=== PATIENT | female | born 1990 | race Caucasian/White ===

== ENCOUNTER 2017-06-24 11:28 | Emergency (ER) | payer OTHER ==
[2017-06-24 11:51] VITALS: BMI 30.4
[2017-06-24 13:03] LABS: SQUAMOUS EPITHIAL 1 /hpf (0-5); URINE BACTERIA OCC (<OCC); URINE BILIRUBIN NEGATIVE (NEGATIVE); URINE BLOOD NEGATIVE (NEGATIVE); URINE CLARITY SLIGHTY-CLOUDY (Clear); URINE COLOR YELLOW (YELLOW); URINE GLUCOSE (UA) NEG (Normal); URINE LEUKOCYTE ESTERASE NEG Leu/uL (Negative); URINE NITRATE NEGATIVE (NEGATIVE); URINE PROTEIN NEGATIVE (NEGATIVE); URINE UROBILINOGEN 0.2-1.0 mg/dL (0.2-1.0)
[2017-06-24] MEDS ORDERED: Lactated Ringer's 1,000 ML IV SCH (13:15)
--- NOTE | 2017-06-24 14:47 | OBHP ---
Datetime: 06/24/2017 12:43 IP Adm Impression: Term, intrauterine Admit Comment, IP Provider: 26 y/o female (ADOLFO 07/11) at 38wks gestation presents with intermitt ent low back and pelvic pain starting last night. Pt describes pain as mesntrual cramps, 4/10 in inte nsity, occuring [id number]. She also reports 2 episodes of pink tinged mucuous discharge. Pt states she has been having frequency and urgency of urination. Denied dysuria, fever, chills, flank pain, or vaginal pruritis. Denies vaginal bleeding, LOF. Reports movement. Pt also reports that she had a yeast infection 2 weeks ago, treated with a vaginal cream. Now resolved. PNC: Seen at [facility]. GBS+. Last visit 06/19, Last U/S 06/16 WNL. 3rd trimester labs revi ewed. Next OB visit 06/19 OBHx: denies PMHX: denies PSurgHx: denies Medications: PNV Allergies: NKDA PE General: NAD Cardio: RRR, No murmurs Resp: CTABL, no wheezing Abdomen: Gravid, NT FHR: 150s', reactive, questionnable late decel x1 [place]: low amplitude, irregular CTX Assessment: IUP at 38 wks Plan: IV hydration, 1 bolus LR, Continuous monitoring. Observation The patient was seen with resident I agree with the notes. Vaginal exam 1 cm 75% effaced -2 Early labor, patient discharged home with labor precautions. EGA AdmitDate IP: 37.4 Vital Signs Provider: Reviewed; Within Normal Limits IP Chief Complaint: Uterine contractions
[2017-06-24 18:44] VITALS: BP 116/65; PULSE 85; RESP 18; TEMP 98.6; O2SAT 100
== END 2017-06-24 14:30 | disposition home or self-care (01) ==
LOC: H.EROB2 11:28 → H.EROB 12:02 → H.EROB2 14:30
DX: O26.893 Other specified pregnancy related conditions, third trimester (principal); R10.2 Pelvic and perineal pain; M54.5 Low back pain; Z3A.38 38 weeks gestation of pregnancy
CPT/HCPCS: 81003; 99283; J7120

== ENCOUNTER 2017-06-25 06:23 | Inpatient (IN) | payer OTHER ==
[2017-06-25 07:33] VITALS: BMI 31.4
[2017-06-25] MEDS ORDERED: AMPicillin 2 GM in Sodium Chloride 0.9% 100 ML IVPB STA (07:43)
[2017-06-25] MEDS: Lactated Ringer's 1,000 ML IV SCH ×3 (07:45→10:00)
[2017-06-25] MEDS ORDERED: AMPicillin 1 GM in Sodium Chloride 0.9% 100 ML IVPB SCH (07:45)
[2017-06-25] MEDS ORDERED: Oxytocin 30 UNITS in Sodium Chloride 0.9% 500 ML IV SCH (08:00)
[2017-06-25 08:04] LABS: BASO # 0.1 K/uL (0.0-0.2); BASO % 1.2 % (0.0-2.0); EOS # 0.1 K/uL (0.0-0.7); EOS % 0.7 % (0.0-4.0); HEMOGLOBIN 11.8 g/dL (12.0-16.0); LYMPH # 2.1 K/uL (1.0-4.3); LYMPH % 21.3 % (20.0-40.0); MEAN CORPUSCULAR HEMOGLOBIN 27.2 pg (27.0-31.0); MEAN CORPUSCULAR HGB CONC 32.8 g/dL (33.0-37.0); MEAN PLATELET VOLUME 10.1 fl (7.2-11.7); MONO # 0.6 K/uL (0.0-0.8); MONO % 5.9 % (0.0-10.0); NEUT # 6.9 K/uL (1.8-7.0); NEUT % 70.9 % (50.0-75.0); NRBC % 0.1 % (0.0-0.0); RBC 4.33 Mil/uL (3.80-5.20); WHITE BLOOD COUNT 9.7 K/uL (4.8-10.8)
[2017-06-25] MEDS ORDERED: Oxytocin 30 UNITS in Sodium Chloride 0.9% 500 ML IV ONE (10:02)
--- NOTE | 2017-06-25 10:31 | OBPN ---
Datetime: 06/25/2017 07:49 IP Progress Impression: Reassuring heart rate IP Progress Plan: Augmentation (Annotations: Data stored by CPN on behalf of user) FHR - Baseline A Provider: 130s IP Progress Note Comment: Patient without complaints. Plan to start Pitocin augmentation. Maternal well-being and well-being reassuring at this time. Vital Signs Provider: Reviewed; Within Normal Limits NICHD Accel Fetus A IP Provider: [id number] FHR Category Provider Fetus A: Category I NICHD Variability Prov Fetus A: Moderate 6-25bpm NICHD Decel Fetus A IP Provider: None
[2017-06-25] MEDS: AMPicillin 1 GM in Sodium Chloride 0.9% 100 ML IVPB SCH ×2 (13:00→17:10)
[2017-06-25] MEDS ORDERED: Fentanyl/Bupivacaine HCl 250 ML EPI ONE ×2 (14:31→14:41)
[2017-06-25] MEDS ORDERED: Lidocaine 1% Inj (20ml) ONE (15:51)
[2017-06-25] MEDS ORDERED: Oxycodone/Acetaminophen 5/325 mg Tab PO PRN ×2 (19:21)
[2017-06-25] MEDS ORDERED: Benzocaine/Menthol SPRAY TOP PRN (19:21)
[2017-06-26] MEDS: Lactated Ringer's 1,000 ML IV SCH (02:57)
[2017-06-26 07:42] LABS: HEMOGLOBIN 9.7 g/dL (12.0-16.0); MEAN CELL VOLUME 83.6 fl (81.0-99.0); MEAN CORPUSCULAR HEMOGLOBIN 27.1 pg (27.0-31.0); MEAN CORPUSCULAR HGB CONC 32.4 g/dL (33.0-37.0); RBC 3.58 Mil/uL (3.80-5.20); RED CELL DISTRIBUTION WIDTH 13.9 % (11.5-14.5); WHITE BLOOD COUNT 11.2 K/uL (4.8-10.8)
--- NOTE | 2017-06-26 08:42 | OBDS ---
DELIVERY PERSONNEL Delivery Doctor: Obinna Christie MD Executive Housekeeper: Ashly Morejon RN MATERNAL INFORMATION Delivery Anesthesia: Epidural Medications in Delivery: pitocin Estimated Blood Loss (ml): 300 ml Placenta Cultured: No Maternal Complications: None Provider Comments: Normal spontaneous vaginal delivery. Patient delivered viable male with Ap gars of 9 and 9 at one and 5 minutes respectively. Loose nuchal cord 1 reduced. Infant delivered v ia compounds/hand presentation. Placenta delivered spontaneously. Lacerations repaired, as above. [place] dariusz firm and appropriately hemostatic following delivery. No complications. Estimated blood loss 300 mL. LABOR SUMMARY EDC: 07/11/2017 00:00 No. Babies in Womb: 1 Attempted: No Labor Anesthesia: None LABOR INFORMATION Reason for Induction: Not Applicable Onset of Labor: 06/25/2017 03:00 Complete Dilatation: 06/25/2017 16:25 Oxytocin: Augmentation Group B Beta Strep: Positive Antibiotics # of Doses: 3 Antibiotics Time of Last Dose: 1700 Steroids Given: None Reason Steroids Not Administered: Not Applicable MEMBRANES Membranes Rupture Method: Spontaneous Rupture of Membranes: 06/25/2017 03:00 Length of Rupture (hrs): 15.42 Amniotic Fluid Color: Clear Amniotic Fluid Amount: Small Amniotic Fluid Odor: Normal STAGES OF LABOR Stage 1 hrs: 13 Stage 1 min: 25 Stage 2 hrs: 2 Stage 2 min: 0 Stage 3 hrs: 0 Stage 3 min: 11 Total Time in Labor hrs: 15 Total Time in Labor min: 36 VAGINAL DELIVERY Laceration Extension: First Degree Laceration Type: Perineal Other Laceration: right labial Laceration Repair: Yes Laceration Repair Note: First-degree right labial laceration and first-degree midline perineal lacer ation. This infiltrated with 1% lidocaine. Both lacerations were repaired with 2. 0 repeat without co mplication. Areas hemostatic after repair. Patient tolerated repair well. Initial Vag Sponge Count: 10 Final Vag Sponge Count: 10 Initial Vag Sharps Count: 4 Final Vag Sharps Count: 4 Sponge Count Correct: Yes Sharps Count Correct: Yes Count Comment: 5 laps. correct count/acknowledged. BABY A INFORMATION Delivery Date/Time: 06/25/2017 18:25 Method of Delivery: Vaginal Born in Route : No : N/A Forceps: N/A Vacuum Extraction: N/A Shoulder Dystocia : No SHOULDER DYSTOCIA BABY A Infant Delivery Date/Time: 06/25/2017 18:25 PRESENTATION/POSITION BABY A Presentation: Cephalic Cephalic Presentation: Vertex Breech Presentation: N/A PLACENTA INFORMATION BABY A Placenta Delivery Time : 06/25/2017 18:36 Placenta Method of Delivery: Spontaneous Placenta Status: Delivered SCORES BABY A Heart Rate 1 min: >100 bpm Resp Effort 1 min: Good Cry Reflex Irritability 1 min: Cough or Sneeze or Pulls Away Muscle Tone 1 min: Active Motion Color 1 min: Body [place], Extremities Blue Resuscitation Effort 1 min: Tactile Stimulation SCORE 1 MIN: 9 Heart Rate 5 min: >100 bpm Resp Effort 5 min: Good Cry Reflex Irritability 5 min: Cough or Sneeze or Pulls Away Muscle Tone 5 min: Active Motion Color 5 min: Body [place], Extremities Blue Resuscitation Effort 5 min: Tactile Stimulation SCORE 5 MIN: 9 INFORMATION BABY A Gestational Age at Delivery: 37.5 Gestational Status: Term Outcome : Liveborn Condition : Stable Sex: Male IDENTIFICATION/MEDS BABY A ID Band Number: [id number] ID Band Location: Left Leg; Left Arm Vitamin K Given : Not Given Erythromycin Given: Not Given WEIGHT/LENGTH BABY A Birthweight (gms): 3315 Weight (lb): 7 Infant Weight (oz): 5 CORD INFORMATION BABY A No. Cord Vessels: 3 Nuchal Cord : Around Neck x1, Loose Cord Blood Taken: Yes Infant Suction: Mouth; Nose ASSESSMENT BABY A Complications: None Physical Findings at Delivery: Within Normal Limits Infant Respirations: Appears Normal Agricultural Science Professor/ALS Called : No Care By: sharon Transferred To: Remains with Mother
--- NOTE | 2017-06-27 09:35 | OBDCSUM ---
Datetime: 06/27/2017 07:14 Discharged to, Provider: Home Follow up at, Provider: Tobias Musa Disch Instr Activity: Normal activity; May be up to bathroom; May be up for meals; May Shower Disch Instr Diet: Regular Discharge Instructions, Provider: Routine instructions given Discharge Diagnosis, Provider: Term Delivered Follow up in weeks, Provider: 4-6 weeks Contraception discussed, Prov: Yes Disch Activity Restrictions: No exercising; No lifting; No sexual activity; Nothing in vagina - Inte rcourse, tampons, douche Discharge Comment, Provider: 26 yo , s/p NVD of viable male infant on 06/25/17 at 1825, w eight 3315g, APGARS: 9/9. Doing well on PPD 2. Discharge instructions: Encourage PNV 1 tab PO/day Ibuprofen 600 mg 1 tab Q6h PRN if moderate pain, Colace 100mg BID for constipation, Ferrous Sulfat e 325 mg once daily Ambulate with caution, nothing per vagina for 4-6 weeks, no heavy lifting, avoid stairs. If excess juliano bleeding, or fever without relief from tylenol, go to ED. Follow up with provider at [place] in 4-6 weeks. Follow up at wood type finisher or family medicine provider of choice within 1 week to establish care fo r . [facility]. Pt seen on rounds and agree with note. KEISHA Contraception after Delivery: Undecided
--- NOTE | 2017-06-27 09:35 | OBPPN ---
Datetime: 06/27/2017 07:11 PP Pain Prov: Within normal limits PP Nausea Prov: Denies PP Flatus Prov: Yes PP BM Prov: Yes PP Breasts Prov: Not Done PP Heart Prov: Normal PP Lungs Prov: Normal PP Abdomen/Uterus Prov: Normal PP Lochia Prov: Normal PP Vulva/Perineum Prov: Not Done PP CVA Tenderness Prov: Not Done PP Extremities Prov: Normal PP C/S Incision Prov: Not Applicable PP Progress Prov: Normal PP Impression Prov: Normal progression PP Plan Prov: Discharge PP Progress Note Prov: 26 yo , s/p NVD on 06/25/17, PPD 2. Pt was seen and examined at bedside this morning; no acute events overnight. Reports mild abdominal pain that is well controlled with med ication. She has ambulated around the room and to the bathroom and she has voided freely. Has passed gas and has had BM. Lochia less than menses in volume. Breast and bottle feeling . Tolerating diet without difficulty. Denies fever, chills, chest pain, shortness of breath, nausea, vomiting, carlos n in calves. Gen: no acute distress, alert CV: S1S2, RRR Resp: normal effort of respiration, clear to auscultation bilaterally Abdomen: BS+, appropriate tenderness to palpation. Uterus is firm and at the level of the umbilicu s. Ext: no edema, calves nontender A: 26 yo , s/p NVD on 06/25/17, PPD 2. Pt stable, pain well controlled. Doing well. P: Discharge today. [id number] [facility] Pt seen on rounds and agree with note. KEISHA
[2017-06-27 22:03] VITALS: BP 111/76; PULSE 89; RESP 19; TEMP 98.3; O2SAT 99
--- NOTE | 2017-06-29 11:20 | OBPPN ---
Datetime: 06/26/2017 06:26 PP Pain Prov: Within normal limits PP Nausea Prov: Denies PP Flatus Prov: Yes PP BM Prov: No PP Breasts Prov: Not Done PP Heart Prov: Normal PP Lungs Prov: Normal PP Abdomen/Uterus Prov: Normal PP Lochia Prov: Normal PP Vulva/Perineum Prov: Not Done PP CVA Tenderness Prov: Not Done PP Extremities Prov: Normal PP C/S Incision Prov: Not Applicable PP Progress Prov: Normal PP Impression Prov: Normal progression PP Progress Note Prov: 26 yo , s/p NVD on 06/25/17, PPD 1. Pt was seen and examined at bedside this morning; no acute events overnight. Reports mild abdominal pain that is well controlled with med ication. She has ambulated around the room and to the bathroom and she has voided freely. Has passed gas, has not had a BM yet. Lochia less than menses in volume. Breast and bottle feeling . Tole rating diet without difficulty. Denies fever, chills, chest pain, shortness of breath, nausea, vomiti ng, pain in calves. Gen: no acute distress, alert CV: S1S2, RRR Resp: normal effort of respiration, clear to auscultation bilaterally Abdomen: BS+, appropriate tenderness to palpation. Uterus is firm and at the level of the umbilicu s. Ext: no edema, calves nontender A: 26 yo , s/p NVD on 06/25/17, PPD 1. Pt stable, pain well controlled. Doing well. P: Continue current post- management. [id number] Pt was seen and discussed with Resident and I agree with the above. Vital Signs Provider PP: Reviewed; Within Normal Limits
== END 2017-06-27 17:55 | disposition home or self-care (01) | DRG 373 ==
LOC: H.EROB2 06:23 → H.L&D 07:04 → H.EROB2 07:38 → H.L&D 07:39 → H.OB/GYN 20:57
PROVIDERS: ADMIT Obstetrics & Gynecology Gynecology; ATTEND Obstetrics & Gynecology Gynecology
PROC: 10E0XZZ Delivery of Products of Conception, External Approach (ICD-10-PCS; principal; 2017-06-25)
PROC: 4A1HXCZ Monitoring of Products of Conception, Cardiac Rate, External Approach (ICD-10-PCS; 2017-06-25)
PROC: 0HQ9XZZ Repair Perineum Skin, External Approach (ICD-10-PCS; 2017-06-25)
DX: O69.81X0 Labor and delivery complicated by cord around neck, without compression, not applicable or unspecified (principal); O32.2XX0 Maternal care for transverse and oblique lie, not applicable or unspecified; Z37.0 Single live birth; O70.0 First degree perineal laceration during delivery; Z3A.37 37 weeks gestation of pregnancy